=== PATIENT | female | born 1985 | race Two or more races ===

== ENCOUNTER → 2017-09-06 | Emergency (ER) | payer SELFPAY ==
[~2017-09-06] VITALS: Ht 162.6 cm; Wt 66.5 kg
[~2017-09-06] MED LIST: KEFLEX500 MG PO
[2017-09-06 04:17] VITALS: BP 125/81
== END | disposition home or self-care (01) ==
LOC: EME 01:27
DX: S61.411A Laceration without foreign body of right hand, initial encounter (principal); M79.5 Residual foreign body in soft tissue; W26.0XXA Contact with knife, initial encounter; Z23 Encounter for immunization; R20.0 Anesthesia of skin
CPT/HCPCS: 73130; 99281; 99283